=== PATIENT | male | born 1955 | race Caucasian/White ===

== ENCOUNTER 2017-04-29 14:19 | Outpatient (CLI) | payer OTHER ==
[2017-04-29 15:00] LABS: eGFR (African) > 60; eGFR (Non-African) > 60
== END 2017-04-29 14:20 ==
LOC: LAB 14:19
PROVIDERS: ATTEND Family Medicine
DX: I42.6 Alcoholic cardiomyopathy (principal)
CPT/HCPCS: 36415; 80053

== ENCOUNTER 2017-11-10 07:52 | Emergency (ER) | payer OTHER ==
--- NOTE | 2017-11-10 08:01 | ED Physician Documentation ---
General Adult - HISTORIAN Historian: patient, paramedics - HPI Stated Complaint: nausea/vomiting Chief Complaint: General Adult Onset: minutes Timing: still present Severity: moderate Further Comments: yes (Pt is a 62 yo male who [place] with [place] and [place]. 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 " Pt became states that he became lightheaded and felt flushed during the episode. Pt is feeling somewhat better in ER. Pt has not had fever or recent illness.) - ROS CONST: no problems EYES/ENT: none CVS/RESP: none GI/: vomiting, nausea MS/SKIN/LYMPH: none - PAST HX Past History: other (HLD, CAD) Surgeries/Procedures: cardiac bypass Allergies/Adverse Reactions: Allergies Allergy/AdvReac Type Severity Reaction Status Date / Time No Known Drug Allergies Allergy Unknown Verified 11/10/17 08:16 - SOCIAL HX Smoking History: non-smoker - FAMILY HX Family History: No - REVIEWED ASSESSMENTS Nursing Assessment Reviewed: Yes Vitals Reviewed: Yes Progress - Progress Progress: 1 L NS IVF Zofran 4 mg IV sx improved/resolved - EKG/XRAY/CT EKG: NSR (HR=70; LAD; low voltage; T-wave inversion I, aVL.) XRAY: chest (no acute process), abdomen (no obstruction) General Adult Physical Exam - PHYSICAL EXAM GENERAL APPEARANCE: moderate distress EENT: pharynx normal NECK: normal inspection, supple RESPIRATORY: no resp distress, chest non-tender, breath sounds normal CVS: reg rate & rhythm, heart sounds normal ABDOMEN: soft, no organomegaly, decreased BS BACK: normal inspection, no CVA tenderness SKIN: warm/dry, normal color EXTREMITIES: non-tender, normal range of motion, no edema NEURO: oriented X3, motor nml, sensation nml Discharge Clincal Impression: N&V (nausea and vomiting) Qualifiers: Vomiting type: unspecified Vomiting Intractability: non-intractable Qualified Code(s): R11.2 - Nausea with vomiting, unspecified Referrals: Lena Poe MD [Primary Care Provider] - Condition: Good Disposition: 01 HOME, SELF-CARE Decision to Admit: NO Decision Time: 10:26
[2017-11-10 08:17] LABS: BASOPHILS % 0.5 (0.0-1.5); MEAN CORPUSCULAR VOLUME 89.1 fl (80.0-100.0); MONOCYTES % 6.4 % (0.0-11.0); NEUTROPHILS # 6.3 # k/uL (1.4-7.7)
[2017-11-10 08:31] LABS: eGFR (African) > 60; eGFR (Non-African) > 60
[2017-11-10] MEDS ORDERED: ONDANSETRON HCL/PF 4 MG/ 2ML VIAL ONE (09:25)
[2017-11-10] MEDS ORDERED: ONDANSETRON HCL/PF 4 MG/ 2ML VIAL IVP ONE (09:26)
[2017-11-10] MEDS ORDERED: 0.9 % SODIUM CHLORIDE 1,000 ML IV ONE (09:29)
[2017-11-10 10:49] VITALS: BP 120/69
--- NOTE | 2017-11-10 13:23 | Diagnostic Imaging Report ---
SULEMAN JAIMES [facility] [id number] [facility], [facility] [address] [place] [id number] Report Submission Date: Nov 10, 2017 9:02:00 AM DISTRIBUTION FIELD TECHNICIAN Patient Study Name: SAMMIE MALIN Date: Nov 10, 2017 8:29:55 AM DISTRIBUTION FIELD TECHNICIAN MRN: [id number] Modality Type: CR Gender: M Description: CHEST : 53 Institution: [facility] Physician: SULEMAN JAIMES Examination: Portable chest History: Evaluate lungs Comparison exam: Findings: Single view of the chest demonstrates a normal cardiac and mediastinal silhouette. Elevated right hemidiaphragm. Right lung base granuloma. Sternotomy wires. Tortuous aorta. Lung workman without focal infiltrate. No blunting of the costophrenic margins. Osseous structures are appropriate for age. Impression: Chronic parenchymal changes. No acute pulmonary process. Electronically signed on Nov 10, 2017 9:02:00 AM DISTRIBUTION FIELD TECHNICIAN by: Adarsh RASMUSSEN
--- NOTE | 2017-11-10 13:24 | Diagnostic Imaging Report ---
SULEMAN JAIMES [facility] [id number] [facility] [address] [place] [address]. [id number] Report Submission Date: Nov 10, 2017 9:06:44 AM CORROSION TECHNICIAN Patient Study Name: SAMMIE MALIN Date: Nov 10, 2017 8:35:24 AM CORROSION TECHNICIAN MRN: [id number] Modality Type: CR Gender: M Description: ABDOMEN : 53 Institution: [facility] Physician: SULEMAN JAIMES Examination: Obstruction series History: Abdominal discomfort Findings: 3 views obtained of the abdomen. No abnormal dilation of the large or small bowel. Air and stool throughout the large bowel. No suspicious calcification projecting over the renal fossa or the lower pelvic region. Osseous structures demonstrate degenerative spurring. Vascular calcifications. Impression: No obstruction. No suspicious calcifications by plain film sensitivity. Electronically signed on Nov 10, 2017 9:06:44 AM CORROSION TECHNICIAN by: Adarsh RASMUSSEN
[2017-11-11 04:05] LABS: APPEARANCE,URINE CLEAR (CLEAR); COLOR,URINE YELLOW (YELLOW); OCCULT BLOOD,URINE NEGATIVE (NEGATIVE)
== END 2017-11-10 10:45 | disposition home or self-care (01) ==
LOC: ED 07:52
DX: R11.2 Nausea with vomiting, unspecified (principal); I25.10 Atherosclerotic heart disease of native coronary artery without angina pectoris; I25.2 Old myocardial infarction
CPT/HCPCS: 71010; 74000; 80053; 81002; 82550; 82553; 83690; 83880; 84484; 85025; 87400; 93005; J2405; J7030; 96365; 96374; 99283; S1016

== ENCOUNTER 2018-12-03 13:49 | Outpatient (CLI) | payer OTHER ==
[2018-12-03 14:22] LABS: eGFR (Non-African) > 60
== END 2018-12-03 13:50 ==
LOC: LAB 13:49
PROVIDERS: ATTEND Family Medicine
DX: I10 Essential (primary) hypertension (principal)
CPT/HCPCS: 36415; 80053